=== PATIENT | male | born 1975 | race Caucasian/White ===

== ENCOUNTER 2019-10-27 01:17 | Observation (INO) ==
[2019-10-27 02:46] LABS: Basophils # 0.1 10*3/uL (0.0-0.2); Basophils % 0.2 % (0.0-0.8); Eosinophils % 0.2 % (0.00-10.9); Hematocrit 48.8 VOL% (42.0-52.0); Hemoglobin 15.8 GM/DL (14.0-18.0); Immature Granulocytes % 0.8 %; Immature Granulocytes Absolute 0.17 #; Lymphocytes # 2.7 10*3/uL (1.4-4.0); Lymphocytes % 12.2 % (21.2-54.2); Mean Corpuscular HGB Conc 32.4 GM/DL (32-36); Mean Corpuscular Volume 91.6 FL (87-102); Mean Platelet Volume 9.1 FL (9.6-12.0); Monocytes % 3.2 % (1.7-12.7); Neutrophils % 83.4 % (38.7-73.9); Platelet Count 300 T/CUMM (130-400); Red Blood Count 5.33 MC/CUMM (3.8-5.5); Red Cell Distribution Width 13.5 % (9.3-17.3)
[2019-10-27 03:10] LABS: Calcium 8.9 MG/DL (8.5-10.1); Osmolality,Calculated 283.4 MOS/KG (273-304)
[2019-10-27 03:11] LABS: Troponin I 0.06 NG/ML (0.00-0.045)
[2019-10-27] MEDS ORDERED: ASPIRIN EC 325 MG TABLET PO STA (03:45)
[2019-10-27 03:51] LABS: Band Neutrophils 2 % (0-10); Lymphocytes 10 % (20-55); Segmented Neutrophils 85 % (50-85)
[2019-10-27 03:52] LABS: Platelet Estimate Normal; Total Cells Counted 100
[2019-10-27] MEDS ORDERED: ACETAMINOPHEN 325 MG TABLET PO PRN (04:16)
[2019-10-27] MEDS ORDERED: ENOXAPARIN 40 MG/0.4 ML SYRINGE SUBCUT SCH (04:30)
[2019-10-27 08:08] LABS: Risk Ratio 4.33; VLDL CHOLESTEROL 12.2 MG/DL
[2019-10-27 12:06] VITALS: BP 133/71
== END 2019-10-27 13:49 | disposition home or self-care (01) ==
LOC: EDUNIT# → EDBD → N.EDINP 01:17 → N.ED 01:17 → N.2E 04:49
PROVIDERS: ADMIT Internal Medicine; ATTEND Internal Medicine